=== PATIENT | female | born 1995 | race Caucasian/White ===

== ENCOUNTER 2016-09-01 13:18 | Inpatient (IN) | payer BC, OTHER ==
[2016-09-01] MEDS ORDERED: CARBOPROST TROMETHAMINE 250 MCG/ML 1 ML AMP IM PRN (13:54)
[2016-09-01] MEDS ORDERED: LIDOCAINE 1% (PF) 10 MG/ML (30 ML SDV) SQ PRN (13:54)
[2016-09-01] MEDS ORDERED: OXYTOCIN 10 UNIT/ML 1 ML VIAL IM PRN (13:54)
[2016-09-01] MEDS ORDERED: TERBUTALINE 1 MG/ML VIAL SQ PRN (13:54)
[2016-09-01] MEDS ORDERED: METHYLERGONOVINE 0.2 MG/ML 1 ML AMP IM PRN (13:54)
[2016-09-01] MEDS ORDERED: OXYTOCIN 20 UNITS/1000 ML NS 1,000 ML IV SCH (14:00)
[2016-09-01] MEDS: LACTATED RINGERS 1,000 ML IV SCH ×2 (14:12→19:02)
[2016-09-01 14:13] LABS: Basophils % (A) 0 %; CH 31.1; CHCM 34.9; Eosinophils # (A) 0.1 k/uL (0-0.7); Eosinophils % (A) 1 %; HCT 37.7 % (34.0-46.0); Luc # (Auto) 0.15; Luc % (Auto) 1; Lymphocytes # (A) 2.1 k/uL (1.0-4.8); Lymphocytes % (A) 21 %; MCH 30.8 pg (25.0-35.0); MCHC 34.4 g/dL (31.0-37.0); MCV 89.5 fL (80.0-100.0); Mean Platelet Volume 8.7; Monocytes # (A) 0.6 k/uL (0-1.0); Monocytes % (A) 6 %; Neutrophils # (A) 7.2 k/uL (1.3-7.7); Neutrophils % (A) 71 %; RBC 4.21 m/uL (3.80-5.40); RDW 14.1 % (11.5-15.5); WBC 10.2 k/uL (3.8-10.6); WBC (Perox) 10.14
[2016-09-01 14:35] VITALS: BMI 27.4
--- NOTE | 2016-09-01 16:16 | P.HPOB ---
History of Present Illness H&P Date: 09/01/16 Chief Complaint: My water broke at approximately 8:00 this morning This is a 21-year-old white female 1 para 0 EDC 09/06/2016 at 39-2/7 weeks' gestation. Patient presents with a history of her water breaking, clear fluid, with continuous trickling at approximately 8:00 this morning. She admits to mild irregular uterine contractions. Fetus is been active throughout the . Past medical history is essentially unremarkable. Past surgical history dental surgery in the past. Current medications vitamins daily, Diglegis tabs at bedtime ALLERGIES none known. Family history is significant for type 2 diabetes and hypertension. Reproductive history is essentially negative. Social history patient is single, father of the baby is not involved with the but she has good family support. Social alcohol only, none with . She has never been a smoker. She denies illicit drug use. history: Blood type is B+, rubella status immune. Group B strep culture negative. Hepatitis B surface antigen, HIV testing, gonorrhea and chlamydia cultures all negative. One-hour Glucola 16. Anatomic survey of the fetus at 19 weeks was completely within normal limits. Gender of the baby unknown. On exam this is a pleasant young female, 5 foot 9 inches, 186 pounds. Vital signs are stable and she is afebrile. The general physical exam is within normal limits. The abdomen is obviously gravid with a fundal height of 39 cm. Extremities reveal no edema. Cervix is 4-5 cm dilated, 90% effaced, -1 station , vertex presentation. There is a fore bag noted which is removed with an amnio -hook, clear fluid produced. heart rate is in the 140s with frequent accelerations, consistent with reactive NST. Very good overall variability is noted. Uterine contractions are occurring approximately every 3 minutes apart of mild to moderate intensity. Impression: 39-2/7 weeks intrauterine , spontaneous amniorrhexis, now in active labor. Plan: Close maternal and surveillance. Oxytocin augmentation as needed. Patient has been offered Stadol and epidural for analgesia which she will consider that at this time is declining both. Anticipate normal spontaneous vaginal delivery. Review of Systems Negative except as in HPI Constitutional: Reports as per HPI Past Medical History Additional Past Medical History / Comment(s): Pt has hx of a root canal in 2014 and seasonal allergies that she takes claritin for only as needed History of Any Multi-Drug Resistant Organisms: None Reported Past Surgical History: No Surgical Hx Reported Additional Past Surgical History / Comment(s): Oral surgery in the past Past Anesthesia/Blood Transfusion Reactions: No Reported Reaction Past Psychological History: Anxiety Smoking Status: Never smoker - Past Family History Father History Unknown: Yes Family Medical History: Hypertension Medications and Allergies Home Medications Medication Instructions Recorded Confirmed Type Iron 1 tab PO DAILY 09/01/16 09/01/16 History No Known Home Medications [No 09/01/16 09/01/16 History Known Home Medications] Allergies Allergy/AdvReac Type Severity Reaction Status Date / Time No Known Allergies Allergy Verified 09/01/16 13:20 Exam - Vital Signs Vital signs: Vital Signs Temp Pulse Resp BP Pulse Ox 09/01/16 13:54 96.4 F L 85 18 169/97 100 Intake and Output 09/01/16 09/01/16 09/01/16 06:59 14:59 22:59 Other: Weight 84.368 kg Patient Weight 09/02/16 06:59 Weight 84.368 kg See detailed exam under HPI please Results Result Diagrams: 09/01/16 14:00 Assessment and Plan Plan: Close maternal and surveillance. Oxytocin augmentation per protocol. Anticipate normal spontaneous vaginal delivery. Time with Patient: Less than 30
[2016-09-01] MEDS ORDERED: BUTORPHANOL 1 MG/ML 1 ML VIAL IV PRN (16:43)
[2016-09-01] MEDS ORDERED: ceFAZolin 2 GM in SODIUM CHLORIDE 0.9% 100 ML IVPB ONE (19:03)
[2016-09-01] MEDS ORDERED: CITRIC ACID-SODIUM CITRATE 15 ML CUP PO ONE (19:03)
[2016-09-01] MEDS ORDERED: OXYTOCIN 10 UNIT/ML 1 ML VIAL ONE (19:11)
[2016-09-01] MEDS ORDERED: ONDANSETRON 4 MG/2 ML VIAL ONE (19:11)
[2016-09-01] MEDS ORDERED: MORPHINE SULFATE (PF) 0.3 MG/0.3 ML SYR ONE (19:11)
[2016-09-01] MEDS ORDERED: KETOROLAC 30 MG/ML 1 ML VIAL ONE (19:11)
[2016-09-01] MEDS ORDERED: NALBUPHINE 10 MG/ML AMPUL ONE (19:11)
--- NOTE | 2016-09-01 20:07 | P.OP ---
Date of Procedure: 09/01/16 Preoperative Diagnosis: Interuterine at 39 Postoperative Diagnosis: Same plus nonreassuring heart tones Procedure(s) Performed: Primary low transverse section Implants: Anesthesia: spinal Surgeon: Preeti Bhatti Nutrition Worker #1: Ira Red Estimated Blood Loss (ml): 300 IV fluids (ml): 800 Urine output (ml): 150 Pathology: none sent Condition: stable Disposition: floor Indications for Procedure: Nonreassuring heart tones Operative Findings: Normal uterus tubes and ovaries were appreciated Description of Procedure: Patient was taken to the operating room where spinal anesthesia was found be adequate by the anesthesia department, she was then prepped and draped in normal sterile fashion. A Pierce catheter was placed prior to taking her back to the operating suite. A Pfannenstiel skin incision was then made with the scalpel and carried through the underlying layer of fascia the fascia was then incised in the midline the incision was then extended laterally the anterior aspect of the fascial incision was grasped with celso clamps, elevated and underlying rectus muscle was dissected off sharply. attention was turned to the inferior aspect of the incision which was grasped with clamps, elevated and the underlying rectus muscles dissected sharply once again. The peritoneum was identified and entered sharply the incision was then extended laterally and a bladder blade bladder blade was then inserted. The bladder flap was then created using sharp dissection the bladder blade was then reinserted, and a scalpel was then used to make a hysterotomy incision. clear fluid was noted and the infant was delivered in atraumatic fashion and handed off to the nurse. The placenta was delivered manually the uterus was cleared of all clots and debris and exteriorized. The hysterotomy incision was then closed with 0 Vicryl in a running locked fashion hemostasis was appreciated. The abdomen was then irrigated copiously the hysterotomy incision was then inspected one more time and was hemostatic. The uterus was then returned to the abdomen once again the hysterotomy incision was inspected hemostasis was noted. The gutters were cleared of all clots and debris. Subcutaneous tissue was inspected hemostasis was noted, the fascia was then closed with 0 Vicryl in a running fashion from one lateral to the other lateral edge. The skin was then closed with 4-0 Vicryl in a subcuticular fashion hemostasis was noted sterile standard Steri-Strips and sterile dressings were applied as needed OR correct 2 and patient was taken to the recovery room awake and in stable condition
[2016-09-01] MEDS ORDERED: METOCLOPRAMIDE 5 MG/ML 2 ML VIAL IVP PRN (20:08)
[2016-09-01] MEDS ORDERED: ONDANSETRON 4 MG/2 ML VIAL IVP PRN (20:08)
[2016-09-01] MEDS ORDERED: NALOXONE 0.4 MG/ML 1 ML VIAL IV PRN (20:08)
[2016-09-01] MEDS ORDERED: ACETAMINOPHEN TAB 325 MG TAB PO PRN (20:08)
[2016-09-01] MEDS ORDERED: diphenhydrAMINE 50 MG CAP PO PRN (20:08)
[2016-09-01] MEDS ORDERED: ZOLPIDEM 5 MG TAB PO PRN (20:08)
[2016-09-01] MEDS ORDERED: diphenhydrAMINE 50 MG/ML 1 ML VIAL IVP PRN ×2 (20:08)
[2016-09-01] MEDS ORDERED: diphenhydrAMINE 25 MG CAP PO PRN (20:08)
[2016-09-01] MEDS ORDERED: Acetaminophen-Codeine 300-30mg TAB PO PRN (20:08)
[2016-09-02] MEDS: LACTATED RINGERS 1,000 ML IV SCH ×4 (00:19→05:28)
[2016-09-02 02:17] LABS: Appearance,Urine Cloudy (Clear); Bilirubin,Urine Negative (Negative); Glucose,Urine (UA) Trace (Negative); Granular Casts,Urine 70 /lpf (0); Ketones,Urine 1+ (Negative); Leukocyte Esterase,Urine Large (Negative); Mucus,Urine Few /hpf; Nitrite,Urine Negative (Negative); Particle Count 7781; Protein,Urine 1+ (Negative); RBC,Urine 98 /hpf (0-5); Specific Gravity,Urine 1.034 (1.001-1.035); Squamous Epithelial Cell,Urine <1 /hpf (0-4); UA Billing (MACRO vs. MICRO) MICRO; Urobilinogen,Urine <2.0 mg/dL (<2.0); WBC,Urine 54 /hpf (0-5)
[2016-09-02 02:18] LABS: Basophils % (A) 0 %; CH 30.6; CHCM 34.4; Eosinophils # (A) 0.1 k/uL (0-0.7); Eosinophils % (A) 1 %; HCT 35.7 % (34.0-46.0); HDW 3.17; HGB 12.1 gm/dL (11.4-16.0); Luc # (Auto) 0.14; Luc % (Auto) 1; Lymphocytes # (A) 1.6 k/uL (1.0-4.8); Lymphocytes % (A) 13 %; MCH 30.3 pg (25.0-35.0); MCHC 33.9 g/dL (31.0-37.0); MCV 89.5 fL (80.0-100.0); Mean Platelet Volume 8.5; Monocytes # (A) 0.7 k/uL (0-1.0); Monocytes % (A) 6 %; Neutrophils # (A) 9.5 k/uL (1.3-7.7); Neutrophils % (A) 79 %; RBC 3.99 m/uL (3.80-5.40); RDW 13.9 % (11.5-15.5); WBC (Perox) 13.03
[2016-09-02 02:28] LABS: ALT 31 U/L (9-52); AST 27 U/L (14-36); Blood Urea Nitrogen 12 mg/dL (7-17); LDH 765 U/L (313-618); Non-African American GFR(MDRD) >60 (>60 ml/min/1.73 sqM); Uric Acid 5.4 mg/dL (3.7-7.4)
[2016-09-02 07:41] LABS: Basophils % (A) 0 %; CH 30.3; CHCM 33.7; Eosinophils # (A) 0.1 k/uL (0-0.7); Eosinophils % (A) 1 %; HCT 33.6 % (34.0-46.0); HDW 3.14; HGB 11.4 gm/dL (11.4-16.0); Luc # (Auto) 0.12; Luc % (Auto) 1; Lymphocytes # (A) 1.4 k/uL (1.0-4.8); Lymphocytes % (A) 13 %; MCH 30.8 pg (25.0-35.0); MCHC 34.1 g/dL (31.0-37.0); MCV 90.3 fL (80.0-100.0); Mean Platelet Volume 8.1; Monocytes # (A) 0.7 k/uL (0-1.0); Monocytes % (A) 6 %; Neutrophils # (A) 8.7 k/uL (1.3-7.7); Neutrophils % (A) 79 %; RBC 3.72 m/uL (3.80-5.40); RDW 13.9 % (11.5-15.5)
[2016-09-02] MEDS ORDERED: SENNOSIDES-DOCUSATE SODIUM 1 EACH TAB PO SCH (08:00)
--- NOTE | 2016-09-02 08:41 | P.PN ---
Subjective Principal diagnosis: Postoperative day #1 Slept well. Negative flatus. Pain well controlled. Objective - Vital Signs Vital signs: Vital Signs Temp 98.3 F 09/02/16 04:30 Pulse 88 09/02/16 04:30 Resp 16 09/02/16 04:30 BP 142/92 09/02/16 04:30 Pulse Ox 97 09/02/16 04:30 Intake & Output 09/01/16 09/02/16 09/02/16 18:59 06:59 18:59 Intake Total 1020.4 Output Total 425 Balance 595.4 Weight 84.368 kg Intake: Intake, IV Titration 1020.4 Amount Lactated Ringers 1,000 ml 1000 @ 125 mls/hr IV .Q8H DELILAH Rx#:[id number] Oxytocin 20 Units/1000 ml 20.4 Ns 1,000 ml @ 1 MILLIUNIT/MIN 3 mls/hr IV .Q24H DELILAH Rx#:[id number] Output: Urine 425 Uretheral (Pierce) 300 Other: Voiding Method Indwelling Catheter # Voids 1 - Constitutional General appearance: Present: average body habitus, cooperative - EENT Eyes: Present: PERRLA ENT: Present: hearing grossly normal - Respiratory Respiratory: bilateral: CTA - Cardiovascular Rhythm: regular Heart sounds: normal: S1, S2 - Gastrointestinal General gastrointestinal: Present: normal bowel sounds - Genitourinary Genitourinary Comment(s): Abdominal incision clean and dry, intact. Fundus firm, midline, mobile, 18 week size. - Integumentary Integumentary: Present: normal - Neurologic Neurologic: Present: CNII-XII intact - Musculoskeletal Musculoskeletal: Present: gait normal, strength equal bilaterally - Psychiatric Psychiatric: Present: A&O x's 3, appropriate affect, intact judgment & insight - Labs CBC & Chem 7: 09/02/16 07:24 09/02/16 02:09 Labs: Abnormal Lab Results - Last 24 Hours (Table) 09/02/16 09/02/16 09/02/16 Range/Units 02:00 02:09 02:09 WBC 12.0 H (3.8-10.6) k/uL RBC (3.80-5.40) m/uL Hct (34.0-46.0) % Plt Count 143 L (150-450) k/uL Neutrophils # 9.5 H (1.3-7.7) k/uL Lactate Dehydrogenase 765 H (313-618) U/L Urine Appearance Cloudy H (Clear) Urine Protein 1+ H (Negative) Urine Glucose (UA) Trace H (Negative) Urine Ketones 1+ H (Negative) Urine Blood Moderate H (Negative) Ur Leukocyte Esterase Large H (Negative) Urine RBC 98 H (0-5) /hpf Urine WBC 54 H (0-5) /hpf Urine Mucus Few H (None) /hpf 09/02/16 Range/Units 07:24 WBC 11.0 H (3.8-10.6) k/uL RBC 3.72 L (3.80-5.40) m/uL Hct 33.6 L (34.0-46.0) % Plt Count 148 L (150-450) k/uL Neutrophils # 8.7 H (1.3-7.7) k/uL Lactate Dehydrogenase (313-618) U/L Urine Appearance (Clear) Urine Protein (Negative) Urine Glucose (UA) (Negative) Urine Ketones (Negative) Urine Blood (Negative) Ur Leukocyte Esterase (Negative) Urine RBC (0-5) /hpf Urine WBC (0-5) /hpf Urine Mucus (None) /hpf Assessment and Plan Plan: Continue postoperative care. Circumcision now. Possible discharge home tomorrow. Time with Patient: Less than 30
--- NOTE | 2016-09-02 09:15 | P.PN ---
Progress Note - Text 0738 Anesthesia POD 1. Patient is status post section under spinal anesthesia with intra-thecal preservative free morphine 300 g. No pruritus, good post-op analgesia, and no headache or other complication.
[2016-09-02] MEDS ORDERED: MORPHINE SULFATE (PF) 0.3 MG/0.3 ML SYR ONE (19:11)
[2016-09-02] MEDS ORDERED: NALBUPHINE 10 MG/ML AMPUL ONE (19:11)
[2016-09-02] MEDS ORDERED: KETOROLAC 30 MG/ML 1 ML VIAL ONE (19:11)
[2016-09-02] MEDS ORDERED: OXYTOCIN 10 UNIT/ML 1 ML VIAL ONE (19:11)
[2016-09-02] MEDS ORDERED: ONDANSETRON 4 MG/2 ML VIAL ONE (19:11)
[2016-09-02] MEDS: IBUPROFEN 600 MG TAB PO PRN (23:32)
[2016-09-02 23:36] VITALS: TEMP 98.3
[2016-09-03 08:28] VITALS: BP 127/85; PULSE 87; RESP 16
[2016-09-03] MEDS: IBUPROFEN 600 MG TAB PO PRN (11:19)
--- NOTE | 2016-09-03 11:44 | P.DS ---
Providers Date of admission: 09/01/16 14:02 Expected date of discharge: 09/03/16 Attending physician: Magda Bueno Primary care physician: Stated None - Discharge Diagnosis(es) (1) 38 weeks gestation of Current Visit: Yes Status: Acute (2) Spontaneous rupture of membranes Current Visit: Yes Status: Acute (3) Non-reassuring heart rate or rhythm affecting management of fetus Current Visit: Yes Status: Acute (4) S/P section Current Visit: Yes Status: Acute Hospital Course: This is a 21-year-old 1 now para 1 woman who presented at 38+ weeks gestation with spontaneous rupture of membranes not in active labor. She was admitted and received Pitocin augmentation. She is group B strep negative and Rh+. Her labor did progress however she developed a nonreassuring heart rate tracing and the decision was made to take her for primary low transverse section. She underwent an uncomplicated procedure however details of findings are not available. The patient's postoperative course was unremarkable. By postoperative day #1 she was ambulating and voiding without difficulty after her Pierce catheter was removed. Her pain was controlled with oral pain medications. Her postoperative hemoglobin was stable. By postoperative day #2 she continued to do quite well. She is using ibuprofen for pain. Her incision appeared well healing and her lochia was minimal. She was therefore discharged home with routine instructions for postoperative care and follow-up. Procedures: Primary low transverse section Patient Condition at Discharge: Good Plan - Discharge Summary New Discharge Prescriptions: New Ibuprofen [Motrin] 600 mg PO Q6HR PRN tab PRN Reason: Mild Pain Or Fever >= 100.5 Acetaminophen-Codeine 300-30mg [Tylenol w/codeine #3] 2 each PO Q4HR PRN #20 tab PRN Reason: Moderate To Severe Pain Continue Iron 1 tab PO DAILY Discharge Medication List Iron 1 tab PO DAILY 09/01/16 [History] Acetaminophen-Codeine 300-30mg [Tylenol w/codeine #3] 2 each PO Q4HR PRN #20 tab 09/03/16 [Rx] Ibuprofen [Motrin] 600 mg PO Q6HR PRN tab 09/03/16 [Rx] Follow up Appointment(s)/Referral(s): Magda Bueno MD [STAFF PHYSICIAN] - 2 Weeks Activity/Diet/Wound Care/Special Instructions: Follow-up in 2 weeks after surgery in the office. Call the office with any concerning signs or symptoms including fever greater than 101, severe abdominal pain, heavy vaginal bleeding, signs of wound infection, increased swelling or redness of the lower extremities, signs of depression. No driving for 2 weeks after surgery. No heavy lifting or vigorous activity until reevaluated in the office. No intercourse for 6 weeks after delivery.
== END 2016-09-03 13:20 | disposition home or self-care (01) | DRG 765 ==
LOC: FBPOP 13:18 → 4FBP 14:02
PROVIDERS: ADMIT Obstetrics & Gynecology; ATTEND Obstetrics & Gynecology
PROC: 10907ZC Drainage of Amniotic Fluid, Therapeutic from Products of Conception, Via Natural or Artificial Opening (ICD-10-PCS; 2016-09-01)
PROC: 3E0S3NZ Introduction of Analgesics, Hypnotics, Sedatives into Epidural Space, Percutaneous Approach (ICD-10-PCS; 2016-09-01)
PROC: 10D00Z1 Extraction of Products of Conception, Low, Open Approach (ICD-10-PCS; principal; 2016-09-01 19:00)
DX: O76 Abnormality in fetal heart rate and rhythm complicating labor and delivery (principal); O99.113 Other diseases of the blood and blood-forming organs and certain disorders involving the immune mechanism complicating pregnancy, third trimester; O99.344 Other mental disorders complicating childbirth; J30.2 Other seasonal allergic rhinitis; F41.9 Anxiety disorder, unspecified; Z82.49 Family history of ischemic heart disease and other diseases of the circulatory system; Z83.3 Family history of diabetes mellitus; Z3A.39 39 weeks gestation of pregnancy; Z37.0 Single live birth; Z98.811 Dental restoration status
CPT/HCPCS: 59025; 81001; 82565; 83615; 84112; 84450; 84460; 84520; 84550; 85025; 86850; 86900; 86901; 88307; 99213